=== PATIENT | male | born 1980 | race African-American/Black ===

== ENCOUNTER 2022-04-18 23:19 | Emergency (ER) | payer OTHER ==
[2022-04-18 23:32] VITALS: BP 150/82; PULSE 62; RESP 18; TEMP 98.2; BMI 31.4
[2022-04-19 05:15] LABS: URINE APPEARANCE CLEAR; URINE BILIRUBIN NEGATIVE (NEGATIVE); URINE COLOR YELLOW; URINE GLUCOSE (UA) NEGATIVE (NEGATIVE); URINE KETONE NEGATIVE (NEGATIVE); URINE LEUK ESTERASE NEGATIVE (NEGATIVE); URINE NITRITE NEGATIVE (NEGATIVE); URINE PROTEIN NEGATIVE (NEGATIVE); URINE UROBILINOGEN 0.2 mg/dL (0.2-1.0)
== END 2022-04-19 07:04 | disposition home or self-care (01) ==
LOC: JER 23:19
DX: R14.1 Gas pain (principal); R10.2 Pelvic and perineal pain
CPT/HCPCS: 81003; 99283-25